=== PATIENT | male | born 1990 | race Caucasian/White ===

== ENCOUNTER 2021-06-05 12:45 | Emergency (ER) | payer OTHER ==
[~2021-06-05] VITALS: Ht 180.3 cm; Wt 85.7 kg
[2021-06-05] MEDS ORDERED: NOVOLIN R100 UNIT/2 SUBQ (12:49)
[2021-06-05] MEDS ORDERED: KLONOPIN0.5 MG PO (12:49)
[2021-06-05 13:36] VITALS: BP 106/53
== END 2021-06-05 13:36 | disposition left against medical advice (07) ==
LOC: M.ERS 12:45
DX: E11.649 Type 2 diabetes mellitus with hypoglycemia without coma (principal)